=== PATIENT | female | born 2000 | race Caucasian/White ===

== ENCOUNTER 2018-09-10 15:28 | Emergency (ER) | payer OTHER ==
--- NOTE | 2018-09-10 15:36 | PDOC ---
Rapid Medical Evaluation Chief Complaint: Cold Symptoms Time Seen by Provider: 09/10/18 15:33 Medical Evaluation: 09/10/18 15:33 I have performed a brief in person evaluation of this patient. CC: Cough/Myalgia/Fever HPI: Pt is a 18 YO female who states over the past 1 day she has had cough and fever. 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 Denies receiving influenza vaccination. PE: Skin: Clear Lungs: Clear Heart:RRR MS: Moves all extremities without difficulty Neuro: Alert and oriented Psych: Appropriate affect I have ordered the following: Influenza swab Pt will proceed to the [facility] for further evaluation. Discharge Disposition - Diagnosis Fever Qualifiers: Fever type: due to other condition Qualified Code(s): R50.81 - Fever presenting with conditions classified elsewhere - Referrals - Patient Instructions - Post Discharge Activity
[2018-09-10 15:39] VITALS: BP 140/71; PULSE 121; TEMP 101.7; BMI 31.1
[2018-09-10] MEDS ORDERED: ACETAMINOPHEN 500 MG TABLET (FP) PO ONE (16:15)
--- NOTE | 2018-09-10 16:17 | PDOC ---
History of Present Illness - General Chief Complaint: Cold Symptoms Stated Complaint: FEVER COUGH Time Seen by Provider: 09/10/18 15:33 - History of Present Illness Initial Comments: 09/10/18 16:16 18-year-old female without comorbidities presents for evaluation of flulike symptoms times one day Past History - Past Medical History Allergies/Adverse Reactions: Allergies Allergy/AdvReac Type Severity Reaction Status Date / Time No Known Allergies Allergy Verified 09/10/18 15:35 Home Medications: Ambulatory Orders Oseltamivir Phosphate [Tamiflu] 75 mg PO BID #10 capsule 09/10/18 COPD: No Other medical history: LMP 07/24/2018 - Suicide/Smoking/Psychosocial Hx Smoking History: Never smoked Hx Alcohol Use: No Drug/Substance Use Hx: No Review of Systems - Review of Systems Constitutional: Yes: Chills, Fever, Malaise, Night Sweats HEENTM: Yes: Nose Congestion *Physical Exam - Vital Signs Last Vital Signs Temp Pulse Resp BP Pulse Ox 101.7 F H 121 H 18 140/71 99 09/10/18 15:36 09/10/18 15:36 09/10/18 15:36 09/10/18 15:36 09/10/18 15:36 - Physical Exam Comments: 09/10/18 16:16 HEAD: NC/AT EYES: Conjuntiva clear Ears: Canals and TM's normal NOSE: No d/c THROAT: Moist mucous membrances, oral pharanx clear, uvula midline NECK: Supple without adenopathy CARDIAC: S1 S2 LUNGS: CTA Full and Equal breath sounds ABDOMEN: Soft NT ND MS: Full ROM in all joints without edema NEUROLOGIC: No gross sensory or motor deficits, NVID SKIN: Normal color and temperature no lesions or rashes Moderate Sedation - Procedure Monitoring Vital Signs: Procedure Monitoring Vital Signs Temperature 101.7 F H 09/10/18 15:36 Pulse Rate 121 H 09/10/18 15:36 Respiratory Rate 18 09/10/18 15:36 Blood Pressure 140/71 09/10/18 15:36 O2 Sat by Pulse Oximetry (%) 99 09/10/18 15:36 Medical Decision Making - Medical Decision Making 09/10/18 16:16 Given symptoms and timeframe I will treat for flu in light of negative flu swab *DC/Admit/Observation/Transfer Diagnosis at time of Disposition: Influenza Fever Qualifiers: Fever type: due to other condition Qualified Code(s): R50.81 - Fever presenting with conditions classified elsewhere - Discharge Dispostion Disposition: HOME Condition at time of disposition: Stable Decision to Admit order: No - Prescriptions Prescriptions: Oseltamivir Phosphate [Tamiflu] 75 mg PO BID #10 capsule - Referrals - Patient Instructions Printed Discharge Instructions: Influenza Additional Instructions: Please take the Tamiflu as directed. Return to the emergency room should symptoms worsen or go unresolved follow-up with your primary care physician one to 2 days for further evaluation and treatment options. Tylenol and Motrin as directed for body aches and fever. - Post Discharge Activity
[2018-09-10] MEDS ORDERED: ACETAMINOPHEN 500 MG TABLET (FP) ONE (16:18)
== END 2018-09-10 16:35 | disposition home or self-care (01) ==
LOC: JERFT 15:28
DX: J11.1 Influenza due to unidentified influenza virus with other respiratory manifestations (principal)
CPT/HCPCS: 87804; 99281-25

== ENCOUNTER 2020-01-23 03:41 | Emergency (ER) | payer OTHER ==
--- NOTE | 2020-01-23 04:13 | PDOC ---
History of Present Illness - General Chief Complaint: Back Pain Stated Complaint: LOW BACK PAIN Time Seen by Provider: 01/23/20 04:13 History Source: Patient Exam Limitations: No Limitations - History of Present Illness Initial Comments: Pt is a 19 yo F, with no significant PMH, who is presenting via private car from home for pain on her lower back/buttocks area over the past few days. Pt denies any trauma or shaving/waxing to the area. Pt denies any drainage or palpable masses in the area. Pt denies any fevers/chills, headache, vision changes, syncope, chest pain, palpitations, SOB, nausea/vomiting, abdominal pain, urinary symptoms, diarrhea/constipation, or leg swelling. Allergies: NKDA PCP: None Social: Pt denies any cigarette, alcohol, or drug use. Pt denies any recent travel or sick contacts. Surgical: no relevant history. No prior history of abscesses/drainage. Family: no relevant history. 02/23/20 08:16 Past History - Travel History Traveled outside of the country in the last 30 days: No Close contact w/someone who was outside of country & ill: No - Medical History Allergies/Adverse Reactions: Allergies Allergy/AdvReac Type Severity Reaction Status Date / Time No Known Allergies Allergy Verified 09/10/18 15:35 Home Medications: Ambulatory Orders Oseltamivir Phosphate [Tamiflu] 75 mg PO BID #10 capsule 09/10/18 Lidocaine 2% Jelly [Xylocaine 2% Jelly -] 1 applic TP DAILY PRN #1 tube 01/23/20 Clindamycin [Cleocin -] 300 mg PO Q6HPO #28 capsule 01/27/20 Docusate Sodium [Colace -] 100 mg PO DAILY #7 capsule 01/27/20 Oxycodone HCl/Acetaminophen [Percocet 5-325 mg Tablet] 1 tab PO Q6H #8 tablet MDD 4 01/27/20 COPD: No - Psycho-Social/Smoking History Smoking History: Never smoked Have you smoked in the past 12 months: No Information on smoking cessation initiated: No - Substance Abuse Hx (Audit-C & DAST Scrn) How often the patient has a drink containing alcohol: Never Score: In Men: 4 or > Positive; In Women: 3 or > Positive: 0 Screen Result (Pos requires Nsg. Audit-10AR): Negative In the last yr the pt used illegal drug/Rx for NonMed reason: No Score: Yes response is considered Positive: 0 Screen Result (Positive result requires Nsg. DAST-10): Negative Trauma Specific PMHX - Complaint Specific PMHX Arthritis: No Back Injury: No Neck Injury: No Hx Sacro Iliac Joint Dysfunction: No Review of Systems - Review of Systems Able to Perform ROS?: Yes Is the patient limited Vietnamese proficient: No Constitutional: Yes: Weight Stable. No: Chills, Diaphoresis, Fever, Loss of Appetite, Malaise HEENTM: No: Recent change in vision, Nose Congestion, Throat Pain, Throat Swelling, Difficulty Swallowing Respiratory: No: Cough, Orthopnea, Shortness of Breath Cardiac (ROS): No: Chest Pain, Edema, Irregular Heart Rate, Lightheadedness, Palpitations, Syncope, Chest Tightness ABD/GI: No: Constipated, Diarrhea, Nausea, Poor Appetite, Poor Fluid Intake, Vomiting : No: Burning, Dysuria, Frequency, Flank Pain, Hematuria, Pain, Urgency Musculoskeletal: No: Back Pain, Muscle Pain Integumentary: Yes: See HPI (pain on skin over lower back/buttocks). No: Bruising, Change in Color, Erythema, Lesions, Lumps, Rash Neurological: No: Headache, Numbness, Weakness, Dizziness Psychiatric: No: Sleep Pattern Change, Change in Appetite Endocrine: No: Increased Urine, Change in Weight Hematologic/Lymphatic: No: Anemia, Blood Clots, Easy Bleeding, Easy Bruising All Other Systems: Reviewed and Negative *Physical Exam - Vital Signs Last Vital Signs Temp Pulse Resp BP Pulse Ox 98.5 F 87 16 116/72 98 01/23/20 03:45 01/23/20 03:45 01/23/20 03:45 01/23/20 03:45 01/23/20 03:45 - Physical Exam Vitals stable, pt afebrile. Pt in NAD, overweight body habitus. Pt alert and oriented x3. 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 No midline spinal tenderness, step-offs, or crepitus. Head normocephalic, atraumatic. Eyes PERRLA, EOMI. Oropharynx without erythema or exudates, no LAD b/l. No nasal congestion. Hearing intact. Clear heart sounds, S1/S2, no JVD, b/l pedal edema, or heart murmur. Clear lung sounds, no respiratory distress, wheezes, crackles, or accessory muscle use. No abdominal or CVA tenderness to palpation, no rebound, no guarding. Abdomen soft, non-distended, and with normoactive bowel sounds. ~1 cm area of mild erythema on R gluteal cleft with TTP, with no surrounding drainage or streaking. No palpable mass. No extension into rectal or inguinal region. Skin otherwise without jaundice or rash. 02/23/20 08:43 03/07/20 11:59 Medical Decision Making - Medical Decision Making Pt was seen at bedside, also will be seen by attending Dr. Lau. Pt presenting with tenderness and mild erythema to R gluteal cleft, consistent with pilonidal cyst. No surrounding streaking or drainage, no involvement of inguinal, vaginal, or ailin-rectal area. Provided 650 mg PO tylenol and topical lidocaine jelly for improvement of pain. Will continue to reassess pt and monitor for symptomatic improvement. Pts symptoms improved after interventions. No indication for abx coverage at this time. Pt safe for d/c with f/u to PCP or return to ED for wound check. Strict return precautions provided with pt understanding. 02/23/20 08:45 03/07/20 11:59 Discharge - Discharge Information Problems reviewed: Yes Clinical Impression/Diagnosis: Skin irritation Condition: Good Disposition: HOME - Admission No - Additional Discharge Information Prescriptions: Lidocaine 2% Jelly [Xylocaine 2% Jelly -] 1 applic TP DAILY PRN #1 tube PRN Reason: Wound Care - Follow up/Referral Referrals: [facility] [place] [Provider Group] - Patient Discharge Instructions Patient Printed Discharge Instructions: Pilonidal Cyst Additional Instructions: You were seen in the ER today for skin irritation, which may be the formation of a cyst or an abscess. Please follow-up with your primary care doctor within 1-2 days to discuss your visit and make sure your symptoms have improved. Please return to the ER if you have any worsening pain, development of fevers or chills, loss of consciousness, inability to tolerate food or fluids, or any ot her concerns. I have sent medications to your pharmacy. Please take these medications as prescribed. You can take tylenol or motrin every 4-6 hours as needed for pain. - Post Discharge Activity Work/Back to School Note: Back to Work
[2020-01-23 04:14] VITALS: BMI 36.6
--- NOTE | 2020-01-23 04:36 | PDOC ---
Attending Attestation - Resident Resident Name: Consuelo Malcolm - ED Attending Attestation I have performed the following: I have examined & evaluated the patient, The case was reviewed & discussed with the resident, I agree w/resident's findings & plan, Exceptions are as noted - HPI HPI: 02/05/20 20:05 19F no pmh with painful lesion of right buttock for several days. No drainage, streaking, pain with BM, f/c - Physicial Exam PE: 02/05/20 20:06 Well appearing, +grimacing during exam, AOx3 1cm area of erythema just to the right of midline by the gluteal cleft, minimal induration, no fluctuance - Medical Decision Making 02/05/20 20:07 Likely early pilonidal cyst/abscess, no palpable collection dc with return instructions if lesion progresses, will likely need I and D Discharge - Discharge Information Problems reviewed: Yes Clinical Impression/Diagnosis: Skin irritation Condition: Good Disposition: HOME - Additional Discharge Information Prescriptions: Lidocaine 2% Jelly [Xylocaine 2% Jelly -] 1 applic TP DAILY PRN #1 tube PRN Reason: Wound Care - Follow up/Referral Referrals: [facility] [place] [Provider Group] - Patient Discharge Instructions Patient Printed Discharge Instructions: Pilonidal Cyst Additional Instructions: You were seen in the ER today for skin irritation, which may be the formation of a cyst or an abscess. Please follow-up with your primary care doctor within 1-2 days to discuss your visit and make sure your symptoms have improved. Please return to the ER if you have any worsening pain, development of fevers or chills, loss of consciousness, inability to tolerate food or fluids, or any other concerns. I have sent medications to your pharmacy. Please take these medications as prescribed. You can take tylenol or motrin every 4-6 hours as needed for pain. - Post Discharge Activity Work/Back to School Note: Back to Work
[2020-01-23] MEDS ORDERED: LIDOCAINE HCL 2% JELLY (30 ML/TUBE) TP ONE (05:00)
[2020-01-23] MEDS ORDERED: ACETAMINOPHEN 325 MG TABLET (FP) PO ONE (05:00)
[2020-01-23] MEDS ORDERED: ACETAMINOPHEN 325 MG TABLET (FP) ONE (05:20)
[2020-01-23] MEDS ORDERED: LIDOCAINE HCL 2% JELLY (5 ML/TUBE) ONE (05:20)
[2020-01-23 05:30] VITALS: BP 126/78; PULSE 85; TEMP 97.5
== END 2020-01-23 06:08 | disposition home or self-care (01) ==
LOC: JER 03:41
DX: L98.8 Other specified disorders of the skin and subcutaneous tissue (principal)
CPT/HCPCS: 99283-25

== ENCOUNTER 2020-01-26 22:08 | Emergency (ER) | payer OTHER ==
--- NOTE | 2020-01-26 22:52 | PDOC ---
Rapid Medical Evaluation Chief Complaint: Abscess Boil Time Seen by Provider: 01/26/20 22:51 Medical Evaluation: Allergies Allergy/AdvReac Type Severity Reaction Status Date / Time No Known Allergies Allergy Verified 09/10/18 15:35 01/26/20 22:52 19 year old female c/o increased pain to pilonidal cyst. seen in this ER 2 days and was started on bactrim DS. currently on Bactrim ds < 48 hours. denies fever/ chills a: pilonidal cyst P: patient to the ER for further management of care. Discharge Disposition - Diagnosis Pilonidal cyst - Referrals - Patient Instructions - Post Discharge Activity
[2020-01-26] MEDS ORDERED: IBUPROFEN 600 MG TABLET (FP) PO ONE ×2 (22:55→23:35)
[2020-01-26 22:56] VITALS: TEMP 100.7; BMI 36.6
--- NOTE | 2020-01-27 00:08 | PDOC ---
Attending Attestation - Resident Resident Name: Janusz Hammer - ED Attending Attestation I have performed the following: I have examined & evaluated the patient, The case was reviewed & discussed with the resident, I agree w/resident's findings & plan - HPI HPI: 01/27/20 01:12 see resident hpi - Physicial Exam PE: 01/27/20 01:12 see resident exam - Medical Decision Making 01/27/20 01:12 19-year-old female with painful swelling near the gluteal crease Exam consistent with pilonidal cyst/abscess Incision and drainage performed at the bedside with a significant amount of pus removed Wound culture sent Clindamycin administered IV, will DC in place of Bactrim Will have return in 48 hours for wound check and packing removal as well as follow-up with general surgery for further evaluation Discharge - Discharge Information Problems reviewed: Yes Clinical Impression/Diagnosis: Pilonidal abscess - Follow up/Referral - Patient Discharge Instructions - Post Discharge Activity
[2020-01-27] MEDS ORDERED: morphine CARPU-JECT 4 MG/1 ML DISP.SYRIN IVPUSH ONE (00:21)
--- NOTE | 2020-01-27 00:21 | PDOC ---
History of Present Illness - General Chief Complaint: Abscess Boil Stated Complaint: ABSCESS Time Seen by Provider: 01/26/20 22:51 History Source: Patient - History of Present Illness Initial Comments: 19 YOF with no relevant history presents with buttock pain of 1 week duration. Per patient, she has been experiencing pain and swelling in this area beginning one week ago. She has noticed that the area is red, and swollen. She visited [facility] and [facility] previously over the week, was told that she had a cyst but that it was not ready to be drained. She mentions that she returns tonight because she believes her cyst has grown in size and is ready for drainage. She denies nausea, vomiting, fever, chills, chest pain, or SOB. 01/28/20 17:37 01/28/20 17:58 Past History - Travel History Traveled outside of the country in the last 30 days: No Close contact w/someone who was outside of country & ill: No - Medical History Allergies/Adverse Reactions: Allergies Allergy/AdvReac Type Severity Reaction Status Date / Time No Known Allergies Allergy Verified 09/10/18 15:35 Home Medications: Ambulatory Orders Oseltamivir Phosphate [Tamiflu] 75 mg PO BID #10 capsule 09/10/18 Lidocaine 2% Jelly [Xylocaine 2% Jelly -] 1 applic TP DAILY PRN #1 tube 01/23/20 Clindamycin [Cleocin -] 300 mg PO Q6HPO #28 capsule 01/27/20 Docusate Sodium [Colace -] 100 mg PO DAILY #7 capsule 01/27/20 Oxycodone HCl/Acetaminophen [Percocet 5-325 mg Tablet] 1 tab PO Q6H #8 tablet MDD 4 01/27/20 COPD: No - Psycho-Social/Smoking History Smoking History: Never smoked Have you smoked in the past 12 months: No - Substance Abuse Hx (Audit-C & DAST Scrn) How often the patient has a drink containing alcohol: Never Score: In Men: 4 or > Positive; In Women: 3 or > Positive: 0 Screen Result (Pos requires Nsg. Audit-10AR): Negative Review of Systems - Review of Systems Constitutional: Yes: See HPI HEENTM: Yes: See HPI Respiratory: Yes: See HPI Cardiac (ROS): Yes: See HPI ABD/GI: Yes: See HPI : Yes: See HPI, Testicular Swelling Integumentary: Yes: See HPI Neurological: Yes: See HPI Endocrine: Yes: See HPI Hematologic/Lymphatic: Yes: See HPI *Physical Exam - Vital Signs Last Vital Signs Temp Pulse Resp BP Pulse Ox 100.7 F H 105 H 20 122/71 97 01/26/20 22:53 01/26/20 22:53 01/26/20 22:53 01/26/20 22:53 01/26/20 22:53 - Physical Exam General Appearance: Yes: Appropriately Dressed, Moderate Distress Respiratory/Chest: positive: Lungs Clear, Normal Breath Sounds, Respiratory Distress Cardiovascular: positive: Regular Rhythm, Regular Rate, S1, S2 Integumentary: positive: Other (A 3 cm, erythematous, indurated, circular, area of fluctuance is appreciable on visual inspection. It is tender to palpation. ) Procedures - Incision and Drainage I&D Site: Right: Buttock (Indurated lesion in right side of gluteal cleft) Betadine cleansed: Yes Anesthesia: 1% Lidocaine Volume(ml): 20 Blade Size: 10 Attempts: 1 Iodinated Packin/4 in Plain Packing: Yes Complications: none Dressing: Yes (4x4) ED Treatment Course - Medications Given in the ED: ED Medications Discontinued Medications Generic Name Dose Route Start Last Admin Trade Name Sivan PRN Reason Stop Dose Admin Ibuprofen 600 mg 01/26/20 22:55 01/26/20 23:41 Motrin - PO 01/26/20 22:56 600 mg ONCE ONE Administration Medical Decision Making - Medical Decision Making 19 YOF with no relevant history presents with painful skin lesion causing buttock pain of 1 week duration. Patient reports that the lesion has grown in size over the course of the previous week. She has been seen once at [place] and once at [facility] over the course of the previous week where she was diagnosed with a cyst. She denies fever, chills, nausea, or vomiting. Vitals revealing of fever to 100.7 and tachycardia. Physical exam reveals 3cm area of erythema, fluctuance and induration that is hard and tender to palpation. ddx includes but is not limited to pilonidal cyst, abscess, and cellulitis. Plan: Will do Incision and Drainage to provide symptomatic relief and do blood glucose to ensure this is not presenting symptom of underlying diabetes. Reassess: I&D was performed. Wound was packed with packing gauze. Patient reports significant relief. Blood glucose was wnl. Dispo: Patient is stable, will discharge to home with instructions to follow up with general surgery tomorrow. Discharge - Discharge Information Problems reviewed: Yes Clinical Impression/Diagnosis: Pilonidal abscess Condition: Good Disposition: HOME - Admission No - Additional Discharge Information Prescriptions: Clindamycin [Cleocin -] 300 mg PO Q6HPO #28 capsule Docusate Sodium [Colace -] 100 mg PO DAILY #7 capsule Oxycodone HCl/Acetaminophen [Percocet 5-325 mg Tablet] 1 tab PO Q6H #8 tablet MDD 4 - Follow up/Referral Referrals: Cleve Lovell MD [Staff Physician] - Lars Keys MD [Staff Physician] - Dieter Juarez MD [Staff Physician] - Melvin Castellano [Staff Physician] - - Patient Discharge Instructions Patient Printed Discharge Instructions: DI for Incision and Drainage of a Skin Abscess Additional Instructions: You came to the emergency department for right buttock pain. You were found to have a pilonidal cyst with an associated abscess. You received IV pain medication and IV antibiotics. Your abscess was surgically drained which gave you relief. You were considered to be medically stable. The decision was made to discharge you to home. Please take your antibiotics as prescribed and follow up with surgery tomorrow morning. If you experience additional pain you may take the prescribed pain killers. If your pain becomes significantly worse or you develop a fever, please come back to the emergency department. If you are unable to see surgery by Sunday please return to the ER on Sunday fo wound check. - Post Discharge Activity
[2020-01-27] MEDS ORDERED: CLINDAMYCIN 600MG PREMIX IVPB 600 MG/50 ML BAG IVPB ONE ×2 (00:22→01:15)
[2020-01-27] MEDS ORDERED: morphine SULFATE 4 MG/ML VIAL ONE (00:39)
[2020-01-27 01:37] VITALS: BP 122/74; PULSE 84
== END 2020-01-27 01:37 | disposition home or self-care (01) ==
LOC: JER 22:08
PROC: 0H98XZZ Drainage of Buttock Skin, External Approach (ICD-10-PCS; principal; 2020-01-27)
PROC: 3E033GC Introduction of Other Therapeutic Substance into Peripheral Vein, Percutaneous Approach (ICD-10-PCS; principal; 2020-01-27)
DX: L05.01 Pilonidal cyst with abscess (principal)
CPT/HCPCS: 82962; 87070; 87205; 99284-25

== ENCOUNTER 2020-06-03 10:12 | Emergency (ER) | payer OTHER ==
[2020-06-03 10:39] VITALS: BP 132/77; PULSE 91; TEMP 97.8; BMI 38.4
== END 2020-06-03 12:23 | disposition home or self-care (01) ==
LOC: JERFT 10:12 → JER 10:12 → JERFT 12:23
PROC: 0H98XZZ Drainage of Buttock Skin, External Approach (ICD-10-PCS; principal; 2020-06-03)
DX: L02.31 Cutaneous abscess of buttock (principal)
CPT/HCPCS: 87070; 87076; 87205; 99282-25

== ENCOUNTER 2020-06-20 23:14 | Emergency (ER) | payer OTHER ==
[2020-06-20 23:22] VITALS: BP 139/88; TEMP 98.2; BMI 39.3
[2020-06-21 00:55] VITALS: PULSE 106
== END 2020-06-21 00:55 | disposition home or self-care (01) ==
LOC: JER 23:14
DX: L05.01 Pilonidal cyst with abscess (principal)
CPT/HCPCS: 99283-25

== ENCOUNTER 2020-07-19 05:03 | Day surgery (SDC) | payer OTHER ==
[2020-07-13 14:15] VITALS: BMI 38.4
[2020-07-19] MEDS ORDERED: MIDAZOLAM HCL 2 MG/2 ML SINGLE DOSE VIAL ONE ×3 (09:03→09:39)
[2020-07-19] MEDS ORDERED: METHYLENE BLUE 50 MG/10 ML AMPUL ONE (09:35)
[2020-07-19] MEDS ORDERED: ceFAZolin 2 GRAM PREMIX BAG IVPB ONE (09:40)
[2020-07-19] MEDS ORDERED: ceFAZolin SODIUM 1 GM VIAL ONE (09:59)
[2020-07-19] MEDS ORDERED: DEXAMETHASONE SOD PHOSPHATE 4 MG/1 ML VIAL ONE (09:59)
[2020-07-19] MEDS ORDERED: ONDANSETRON 4 MG/2 ML VIAL ONE (09:59)
[2020-07-19] MEDS ORDERED: LIDOCAINE HCL/PF 2% SDV 5ML VIAL ONE (09:59)
[2020-07-19] MEDS ORDERED: ACETAMINOPHEN 1000 MG/100 ML VIAL (NON FORMULARY) IVPB ONE (10:33)
[2020-07-19] MEDS ORDERED: ONDANSETRON 4 MG/2 ML VIAL IVPUSH PRN (10:34)
[2020-07-19] MEDS ORDERED: oxyCODONE HCL 5 MG TABLET PO PRN ×2 (10:34)
[2020-07-19] MEDS ORDERED: LACTATED RINGERS SOLUTION 1,000 ML IV SCH (10:45)
[2020-07-19] MEDS ORDERED: ACETAMINOPHEN INJECTION 100 ML IVPB ONE (12:01)
[2020-07-19 16:56] VITALS: BP 127/78; PULSE 90; TEMP 97.5
== END 2020-07-19 14:20 | disposition home or self-care (01) ==
LOC: JASU-SURG 05:03
PROVIDERS: ATTEND Surgery
PROC: 0JB90ZZ Excision of Buttock Subcutaneous Tissue and Fascia, Open Approach (ICD-10-PCS; principal; 2020-07-19 09:00)
DX: L05.91 Pilonidal cyst without abscess (principal)
CPT/HCPCS: 84703; 88304-TC; 94760; J0131; Q9968

== ENCOUNTER 2022-01-27 20:23 | Emergency (ER) | payer OTHER ==
[2022-01-27 20:50] VITALS: BP 133/86; PULSE 98; BMI 43.9
[2022-01-27] MEDS ORDERED: KETOROLAC TROMETHAMINE 30 MG/1 ML VIAL IM ONE (22:11)
[2022-01-27] MEDS ORDERED: ACETAMINOPHEN 325 MG TABLET (FP) PO ONE (22:11)
[2022-01-28] MEDS ORDERED: IBUPROFEN 600 MG TABLET (FP) PO ONE ×2 (00:15→00:17)
== END 2022-01-28 00:54 | disposition home or self-care (01) ==
LOC: JERFT 20:23 → JER 20:23 → JERFT 01-28 00:54
PROC: 3E0233Z Introduction of Anti-inflammatory into Muscle, Percutaneous Approach (ICD-10-PCS; principal; 2022-01-27)
DX: M25.562 Pain in left knee (principal); W01.0XXA Fall on same level from slipping, tripping and stumbling without subsequent striking against object, initial encounter
CPT/HCPCS: 73562-TC-LT-FY; 96372; 99284-25

== ENCOUNTER 2022-03-23 08:21 | Day surgery (SDC) | payer OTHER ==
[2022-03-21 10:18] VITALS: BMI 41.1
[2022-03-23] MEDS ORDERED: VANCOMYCIN 1,000 MG VIAL (RESTRICTED TO ID ONLY) ONE (08:43)
[2022-03-23] MEDS ORDERED: BUPIVACAINE LIPOSOME/PF (EXPAREL) 266 MG/20 ML VIAL ONE (10:20)
[2022-03-23] MEDS ORDERED: MIDAZOLAM HCL 2 MG/2 ML SINGLE DOSE VIAL ONE (10:20)
[2022-03-23] MEDS ORDERED: FENTANYL CITRATE/PF 50 MCG/ML VIAL ONE ×3 (10:20→13:32)
[2022-03-23] MEDS ORDERED: BUPIVACAINE HCL/PF 0.5% (5MG/ML) 10 ML VIAL ONE (10:20)
[2022-03-23] MEDS ORDERED: PROPOFOL 40 ML ONE (10:43)
[2022-03-23] MEDS ORDERED: ceFAZolin SODIUM 1 GM VIAL ONE (10:48)
[2022-03-23] MEDS ORDERED: DEXAMETHASONE SOD PHOSPHATE 4 MG/1 ML VIAL ONE (10:48)
[2022-03-23] MEDS ORDERED: TRANEXAMIC ACID 1000 MG/10 ML VIAL ONE (10:48)
[2022-03-23] MEDS ORDERED: ONDANSETRON 4 MG/2 ML VIAL ONE (10:48)
[2022-03-23] MEDS ORDERED: HYDROmorphone HCL/PF 1 MG/ML VIAL ONE (11:48)
[2022-03-23] MEDS ORDERED: ONDANSETRON 4 MG/2 ML VIAL IVPUSH PRN (12:56)
[2022-03-23] MEDS ORDERED: IBUPROFEN 800 MG/8 ML IJ IVPB PRN (12:56)
[2022-03-23] MEDS ORDERED: oxyCODONE HCL 5 MG TABLET PO PRN (12:56)
[2022-03-23] MEDS ORDERED: LACTATED RINGERS SOLUTION 1,000 ML IV SCH (13:00)
[2022-03-23 14:32] VITALS: RESP 18
[2022-03-23 15:21] VITALS: PULSE 81
[2022-03-23 16:08] VITALS: TEMP 97.8
[2022-03-23 17:18] VITALS: BP 136/74
== END 2022-03-23 16:35 | disposition home or self-care (01) ==
LOC: FASU 08:21
PROVIDERS: ATTEND Orthopaedic Surgery Sports Medicine
PROC: 0MRN47Z Replacement of Right Knee Bursa and Ligament with Autologous Tissue Substitute, Percutaneous Endoscopic Approach (ICD-10-PCS; principal; 2022-03-23 11:00)
DX: S83.512A Sprain of anterior cruciate ligament of left knee, initial encounter (principal); X58.XXXA Exposure to other specified factors, initial encounter; Y93.9 Activity, unspecified; Y92.9 Unspecified place or not applicable
CPT/HCPCS: 73560-TC-LT-FY; 84703; 94760

== ENCOUNTER 2023-09-12 04:46 | Emergency (ER) | payer OTHER ==
[2023-09-12 04:53] VITALS: BMI 41.1
[2023-09-12] MEDS: KETOROLAC TROMETHAMINE 15 MG/ML VIAL IM ONE (06:12)
[2023-09-12] MEDS ORDERED: DEXAMETHASONE SOD PHOSPHATE 10 MG/1 ML VIAL ONE (06:15)
[2023-09-12] MEDS: DEXAMETHASONE SOD PHOSPHATE 10 MG/1 ML VIAL PO ONE (06:34)
[2023-09-12] MEDS ORDERED: KETOROLAC TROMETHAMINE 15 MG/ML VIAL ONE (06:38)
[2023-09-12] MEDS: KETOROLAC TROMETHAMINE 15 MG/ML VIAL IVPUSH ONE (06:40)
[2023-09-12 06:46] LABS: BASO % 0.5 % (0-2.0); EOS % 2.6 % (0-4.5); HEMOGLOBIN 13.3 GM/dL (10.7-15.3); LYMPH % 16.5 % (8-40); MCH 28.6 pg (25.7-33.7); MEAN CELL VOLUME 81.8 fl (80-96); MEAN PLT VOLUME 7.2 fl (7.5-11.1); MONO % 6.8 % (3.8-10.2); NEUT % 73.6 % (42.8-82.8); PLATELET COUNT 324 10^3/uL (134-434); RBC 4.64 M/mm3 (3.60-5.2); RDW 13.1 % (11.6-15.6); WHITE BLOOD COUNT 13.3 K/mm3 (4.0-10.0)
[2023-09-12 07:18] LABS: POTASSIUM 3.3 mmol/L (3.5-5.1)
[2023-09-12 07:19] LABS: CALCIUM 8.5 mg/dL (8.5-10.1)
[2023-09-12 07:20] LABS: ALBUMIN 3.2 g/dl (3.4-5.0); BLOOD UREA NITROGEN 4.4 mg/dL (7-18)
[2023-09-12 07:23] LABS: CREATININE 0.6 mg/dL (0.55-1.3)
[2023-09-12 07:25] LABS: BILIRUBIN,TOTAL 0.6 mg/dL (0.2-1); TOT PROT 7.3 g/dl (6.4-8.2)
[2023-09-12 07:39] LABS: THROAT:GRP A STREP DETECTED (NOTDETECTED)
[2023-09-12] MEDS: CLINDAMYCIN 600MG PREMIX IVPB 600 MG/50 ML BAG IVPB ONE (08:00)
[2023-09-12] MEDS ORDERED: CLINDAMYCIN 600MG PREMIX IVPB 600 MG/50 ML BAG IVPB ONE (08:00)
[2023-09-12 10:17] VITALS: BP 126/82; PULSE 86; RESP 18; TEMP 99
== END 2023-09-12 12:03 | disposition home or self-care (01) ==
LOC: JER 04:46
PROC: 3E03329 Introduction of Other Anti-infective into Peripheral Vein, Percutaneous Approach (ICD-10-PCS; principal; 2023-09-12)
PROC: 3E0333Z Introduction of Anti-inflammatory into Peripheral Vein, Percutaneous Approach (ICD-10-PCS; 2023-09-12)
DX: J02.0 Streptococcal pharyngitis (principal); R50.9 Fever, unspecified; Z20.822 Contact with and (suspected) exposure to COVID-19
CPT/HCPCS: 0241U-QW; 36415; 70491-TC; 80053; 84703; 85025; 87651; 99285-25; J1100; Q9967